=== PATIENT | female | born 1940 | race Caucasian/White ===

== ENCOUNTER 2017-02-07 13:41 | Inpatient (IN) | payer OTHER ==
[~2017-02-07] VITALS: Ht 157.5 cm; Wt 52.7 kg
[~2017-02-07 13:41] MED LIST: CIPRO500 MG PO; ENFAMIL D-V400 IU/ML PO; FLA500 PO; FOLIC ACID1 MG PO; LAC PO; LEU5 PO; LOT10 PO; METHOTREXATE2.5 M2 PO; NOR5 PO; SYN5 PO; VITAMIN B121000 MCG PO
--- NOTE | 2017-02-07 13:54 | NUR ---
DR TERAN AT BEDSIDE FOR MSE.
--- NOTE | 2017-02-07 13:55 | NUR ---
REC'D A 76/F IN RM 8 BIBA WITH C/O SYNCOPE WHILE SHOPPING AT [employer]. PT REPORTS LOC, AND DENIES HEAD TRAUMA. PT ALSO REPORTS "I'VE BEEN FEELING TIRED AND SLEEPY LATELY". PT AAOX4, SPEAKING IN CLEAR, COMPLETE SENTENCES, RESP E/U, ON CM, DAUGTHER AT BEDSIDE. CALL LIGHT WITHIN REACH, WILL CONTINUE TO MONITOR.
--- NOTE | 2017-02-07 14:17 | NUR ---
PT TAKEN TO RADIOLOGY VIA [facility].
--- NOTE | 2017-02-07 14:34 | NUR ---
PT AMBULATED TO THE RESTROOM WITH SPECIMEN CONTAINER.
--- NOTE | 2017-02-07 14:41 | NUR ---
LAB AT BEDSIDE FOR LAB DRAW.
[2017-02-07 15:00] LABS: BASOPHIL % 0.1 % (0-2); PLATELET COUNT 257 x10^3mcL (130-400)
[2017-02-07 15:05] LABS: CALCIUM 9.3 mg/dL (8.5-10.1); CARBON DIOXIDE 28.2 mmol/L (21-32); CHLORIDE SERUM 97 mmol/L (98-107); GLUCOSE SERUM 107 mg/dL (74-106); POTASSIUM SERUM 4.4 mmol/L (3.5-5.1); RED CELL DISTRIBUTION WIDTH 15.5 % (11.5-14.5); SODIUM SERUM 132 mmol/L (136-145)
[2017-02-07 15:09] LABS: ALBUMIN 4.1 g/dL (3.4-5.0); ALKALINE PHOSPHATASE 67 U/L (46-116); ALT/SGPT 42 U/L (14-59); AST/SGOT 38 U/L (15-37); BILIRUBIN TOTAL 0.6 mg/dL (0.20-1.00); TOTAL PROTEIN, SERUM 8.2 g/dL (6.4-8.2)
[2017-02-07 15:10] LABS: UA SPECIFIC GRAVITY 1.015 (1.005-1.035); microscopic required? YES; urine erythrocyte NEGATIVE (NEGATIVE)
--- NOTE | 2017-02-07 15:22 | NUR ---
REPORT GIVEN TO PAM DOOLEY TO ASSUME CARE OF THE PT,.
[2017-02-07 16:05] VITALS: BP 129/61
--- NOTE | 2017-02-07 16:21 | NUR ---
RECEIVED PATIENT FROM ED VIA [facility]ER[facility], PATIENT ALERT AND ORIENTED, TELE # 40 SR, IV ACCESS TO LAC WNL, NO C/O PAIN AT THIS TIME, ORIENTED PATIENT TO ROOM AND SURROUNDINGS, BED IN LOW POSITION, BED RAILS UP X 2, CALL LIGHT WITHIN REACH, WILL ENDORSE CARE TO PRIMARY NURSE LEONOR OROZCO
[2017-02-07 16:28] LABS: MAGNESIUM 1.8 mg/dL (1.8-2.4); PHOSPHOROUS 3.7 mg/dL (2.5-4.9)
[2017-02-07 16:29] LABS: T3 TOTAL 1.05 ng/mL
[2017-02-07 16:38] LABS: FREE T4 1.58 ng/dL (0.76-1.46); FREE THYROXINE INDEX 4.9 ug/dL (1.4-4.5); T4(THYROXINE) 14.3 ug/dL (4.7-13.3)
--- NOTE | 2017-02-07 19:05 | NUR ---
RECEIVED LAYING IN BED IN NO ACUTE DISTRESS. PT DENIES HEADACHE, DIZZINESS, LIGHTHEADEDNESS, N/V. A/O X4. OBEYS COMMANDS, SPEECH CLEAR AND CONCISE. PT IS ABLE TO MADE NEEDS KNOWN. TELE #40, NSR WITH A DEPRESSED ST. PT DENIES PAIN AT THIS TIME. PULSES PRESENT, NO EDEMA NOTED, SCD IN PLACE. LUNG SOUNDS CTA, BREATHING ON , SAT 100%. BREATHING EVEN AND UNLABORED. PT DENIES SOB AND DYSPNEA. ABD IS ROUND AND SOFT WITH ACTIVE BOWEL SOUNDS. LAST BM WAS EARLIER TODAY. PT IS ABLE TO FREELY VOID URINE. PT IS AMBULATORY. SKIN CDI. IV FLUIDS INFUSING PER DOCTOR'S ORDERS. IV SITE IS DRY, PATENT, AND INTACT. ROOM IS FREE OF SAFETY HAZARDS. BED IN LOWEST POSITION WITH SIDE RAILS UP X2. CALL LIGHT WITHIN REACH. WILL CONTINUE TO MONITOR
--- NOTE | 2017-02-07 19:29 | NUR ---
PATIENT COMFORTABLE IN BED, NO DISTRESS NOTED. DENIES ANY PAIN,OR DIZZNESS. CALL LIGHT WITH IN REACH. ENDORSED CARE TO NOC PAM TILLMAN.
[2017-02-07 21:05] VITALS: BP 134/69
--- NOTE | 2017-02-07 21:45 | NUR ---
PT REFUSED EVENING DOSE OF COLACE. PT STATED THAT SHE PREFERS TO NOT TAKE AT NIGHT. NO ACUTE DISTRESS NOTED. DENIES HEADACHE OR DIZZINESS AT THIS TIME. CALL LIGHT WITHIN REACH. WILL CONTINUE TO MONITOR
--- NOTE | 2017-02-08 00:53 | NUR ---
PT LAYING IN BED WITH EYES CLOSED AT THIS TIME. COMFORT MEASURES IN PLACE. NO ACUTE DISTRESS NOTED. CALL LIGHT WITHIN REACH. WILL CONTINUE TO MONITOR
--- NOTE | 2017-02-08 04:41 | NUR ---
PT LAYING IN BED ASLEEP. NO ACUTE DISTRESS NOTED. CALL LIGHT WITHIN REACH. WILL CONTINUE TO MONITOR
--- NOTE | 2017-02-08 05:14 | NUR ---
NO SIGNIFICANT CHANGES TO REPORT. PT COMPLIED WITH NURSING CARE THROUGHOUT THE SHIGT. NO ACUTE CHANGES OVER NIGHT. PT DENIED HEADACHE, DIZZINESS, NAUSEA OR VOMITTING. COMFORT MEASURES REMAIN IN PLACE AND ALL NEEDS ASSESSED. IV FLUIDS REMAIN INFUSING PER DOCTOR'S ORDERS. IV SITE IS DRY, PATENT, AND INTACT. ROOM IS FREE OF SAFETY HAZARDS. BED IN LOWEST POSITION WITH SIDE RAILS UP X2. CALL LIGHT WITHIN REACH. WILL ENDORSE TO DAY NURSE FOR CONTINUITY OF CARE
[2017-02-08 06:01] VITALS: BP 125/60
[2017-02-08 06:39] LABS: BASOPHIL % 0.4 % (0-2); PLATELET COUNT 205 x10^3mcL (130-400)
[2017-02-08 07:02] LABS: RED CELL DISTRIBUTION WIDTH 14.8 % (11.5-14.5)
[2017-02-08 07:05] LABS: CALCIUM 8.9 mg/dL (8.5-10.1); CARBON DIOXIDE 25.2 mmol/L (21-32); CHLORIDE SERUM 101 mmol/L (98-107); CREATININE SERUM 0.9 mg/dL (0.6-1.0); GLUCOSE SERUM 96 mg/dL (74-106); MAGNESIUM 1.8 mg/dL (1.8-2.4); PHOSPHOROUS 3.4 mg/dL (2.5-4.9); POTASSIUM SERUM 4.7 mmol/L (3.5-5.1); SODIUM SERUM 135 mmol/L (136-145)
--- NOTE | 2017-02-08 07:30 | NUR ---
RC'D PT RESTING IN BED WITH NO APPARENT SIGNS OF DISTRESS. A/A/O/X4, SPEECH CLEAR AND APPROPRIATE. DENIES DIZZINESS/SYNCOPE/SOB AT THIS TIME. ON TELE 40 WITH SR. DENIES CHEST PAIN AT THIS TIME. PALP PULSES, NO EDEMA NOTED. RESPIRATIONS EQUAL AND UNLABORED. LUNGS CTA. ON RA, DENIES SOB. ABDOMEN SOFT AND NONTENDER. ACTIVE BS. DENIES N/V. VOIDS FREELY, DENIES BURNING. AMBULATORY WITH BRP. SKIN W/D/I. DENIES PAIN AT THIS TIME. IV PATENT AND INFUSING. BED IN LOW POSITION. CALL LIGHT IN REACH. PT EDUCATED ON USING CALL LIGHT WHEN NEEDING ASSISTANCE OUT OF BED. PT VERBALIZED UNDERSTANDING. WILL CONTINUE TO MONITOR.
--- NOTE | 2017-02-08 08:25 | NUR ---
AM MEDICATIONS GIVEN. PT TOLERATED WELL. CALL LIGHT IN REACH. WILL CONTINUE TO MONITOR
--- NOTE | 2017-02-08 08:45 | NUR ---
NOTIFIED BY TELE MONITOR THAT PT IS HAVING OCCASSIONAL PVCS. PT ASYMPTOMATIC, DENIES DIZZINESS/SOB/SYCOPE. DR VALENTIN NOTIFIED AND MADE AWARE. WILL CONTINUE TO MONITOR.
[2017-02-08 09:52] VITALS: BP 128/67
[2017-02-08 10:35] VITALS: Ht 157.5 cm; Wt 52.7 kg
--- NOTE | 2017-02-08 12:46 | NUR ---
PT RESTING IN BED WITH NO APPARENT SIGNS OF DISTRESS. RESPIRATIONS EQUAL AND UNLABORED. DENIES PAIN AT THIS TIME. DENIES DIZZINESS/SOB. CALL LIGHT IN REACH. WILL CONTINUE TO MONITOR.
[2017-02-08 14:16] VITALS: BP 137/65
--- NOTE | 2017-02-08 14:44 | NUR ---
Initial Nutrition Assessment Dx: Syncope PMHx: HTN 1982,Rheumatoid arthritis, migraine, stable , TB (showed as scar on CXR in 1981), stable,Polio,Meningitis and Dislocated jaw PSHx: dilatation and curettage x 2: 1981 and 1982 Labs: (02/08) Na:135L, (02/07) Chol:240H, LDL:147H, HDL:81H, H/H:10.4/31L Meds: Antivert, Colace, Lactinex, NS IV, Synthroid, Zofran Diet:Cardiac PO Intake: (02/08) B:95% Ht: 62in, 5'2" Wt:116#, 52.67kg BMI:21.2kg/m2 (normal) IBW: 110#, 50kg %IBW: 105% UBW:116# Age:76 y/o female Food Allergies:NKFA Skin: intact Neal:21 Edema:None GI: active bowel sounds Last BM:02/07 Nursing Trigger: poor PO intake>3days Pt admitted with disorder of ANS with possible syncope, r/o CVA; likely TIA and metabolic encephalopathy secondary UTI, per H&P. During visit, observed pt sitting up in her bed eating breakfast. Pt reports to weighing 168# two and a half years ago and due to her RA she lost a significant amount of weight. Pt has recelntly been able to gain 16# and has been able to maintain her wt. Pt reports to eating most of her breakfast and was still working on her lunch. RD observed pt had eaten >60% of her meal and pt said she is still working on her lunch pt said it was bland. Problem with: N: No V:No D:No C:No Problems with: Chewing: No Swallowing: No Current appetite: Good Recent wt change:none %wt change:N/A Vitamin/Supplement use:probiotic and Multivitamin Special diet at home:Regular . Pt says she likes to eat eggs and saxena occassionally. Physical activity: used to walk but is limited due to arthritis of her leg Education: provided pt verbal diet education on low sodium diet. What foods to eat and avoid. Pt receptive and verbalized understanding. Estimated Nutritional Needs Based on actual body weight 53kg Energy: 1325-1590kcal/d (25-30kcal/kg for maintenance) Protein: 53g/d (1g/kg for geritatric maintenance) Fluid: 1325-1590ml/d (1ml/kcal) or per doctor Nutrition Diagnosis 1. Altered nutrition labs related to hypercholesteremia possibly secondary to dietary habits as evidenced by elevated lipid panel: Chol:204H, LDL:147H, HDL:81H. Intervention Recommend continue with cardiac diet due to pt with HTN and elevated lipid panel. Monitor/Evaluate Goal: PO intake at least 75% of estimated needs Monitor: PO intake, Labs, GI function F/U in 7 days as low risk:02/15
--- NOTE | 2017-02-08 14:46 | NUR ---
Recommend continue with cardiac diet due to pt with HTN and elevated lipid panel.
[2017-02-08 17:26] VITALS: BP 103/55
--- NOTE | 2017-02-08 18:59 | NUR ---
PT RESTING IN BED WITH NO APPARENT SIGNS OF DISTRESS. DENIES PAIN/DISCOMFORT AT THIS TIME. ON TELE 40 WITH SR. DENIES CHEST PAIN/PRESSURE. RESPIRATIONS EQUAL AND UNLABORED. IV PATENT AND INFUSING. BED IN LOW POSITION. CALL LIGHT IN REACH. WILL ENDORSE TO SUPERVISOR HIDE HOUSE RN..
--- NOTE | 2017-02-08 19:30 | NUR ---
PT AWAKE, SITTING UP IN BED. A/O X4. PT DENIES ANY PAIN AT THIS TIME. PT DENIES FEELING DIZZY, FAINT OR LIGHTHEADED. PT DENIES ANY CHEST PAIN/PRESSURE, DIFFICULTY BREATHING AT THIS TIME. NEURO CHECKS WNL. IV FLUIDS INFUSING PER MD ORDER. IV SITE PATENT AND INTACT. NO REDNESS, SWELLING OR PAIN NOTED AT SITE. ALL SAFETY MEASURES ENSURED. CALL LIGHT AND PERSONAL BELONGINGS WITHIN REACH. WILL CONTINUE TO MONITOR.
[2017-02-08 21:01] VITALS: BP 100/55; BP 96/53
--- NOTE | 2017-02-09 02:00 | NUR ---
PT ASLEEP IN BED. NO ACUTE DISTRESS NOTED AT THIS TIME. BREATHING EVEN AND NON-LABORED. CALL LIGHT WITHIN REACH. WILL CONTINUE TO MONITOR.
[2017-02-09 05:15] VITALS: BP 132/62
[2017-02-09 06:20] LABS: CARBON DIOXIDE 26.2 mmol/L (21-32); CHLORIDE SERUM 102 mmol/L (98-107); CREATININE SERUM 0.8 mg/dL (0.6-1.0); GLUCOSE SERUM 102 mg/dL (74-106); POTASSIUM SERUM 4.2 mmol/L (3.5-5.1); SODIUM SERUM 134 mmol/L (136-145)
[2017-02-09 06:24] LABS: BASOPHIL % 0.7 % (0-2); PLATELET COUNT 227 x10^3mcL (130-400)
--- NOTE | 2017-02-09 06:30 | NUR ---
PT SLEPT AND RESTED COMFORTABLY THROUGH THE NIGHT. NO DISTRESS OR ACUTE CHANGES IN CONDITION NOTED. PT DENIED FEELING SOB, WEAK, HAVING CHEST PAIN, DC OR DIZZINESS. ALL NEEDS ASSESSED AND MET. IV FLUIDS CONTINUING TO INFUSE PER MD ORDER. IV SITE PATENT AND INTACT. ALL SAFETY MEASURES MAINTAINED. CALL LIGHT AND PERSONAL BELONGINGS WITHIN REACH. WILL CONTINUE TO MONITOR.
[2017-02-09 06:50] LABS: RED CELL DISTRIBUTION WIDTH 15.2 % (11.5-14.5)
--- NOTE | 2017-02-09 07:20 | NUR ---
RECEIVED PATIENT SITTING UP IN BED A/O X4, CLEAR SPEECH, DENIES DC OR DIZZINESS. TELE # [address], DENIES CHEST PAIN. BREATHING EVEN UNLABBORED ON RA, DENIES SOB, NO DISTRESS NOTED. SKIN IS WARM CDI WITH IV TO LAC INTACT INFUSING NS AT 50 ML/HR FREE FROM REDNESS AND INFILTRATION. PATIENT IS CALM WITH CARE. INSTRUCTED TO CALL FOR ASSISTANCE IF NEEDED. SAFETY PRECAUTIONS MAINTAINED. WILL CONTINUE TO MONITOR AND MAINTAIN SAFETY.
--- NOTE | 2017-02-09 09:43 | NUR ---
PATIENT C/O ACHING HEADACHE 05/10, TYLENOL 650 MG PO Q6H PRN GIVEN AT THIS TIME. ALL NEEDS ATTENDED TO. WILL MONITOR.
[2017-02-09 09:48] VITALS: BP 124/66
--- NOTE | 2017-02-09 09:58 | NUR ---
ROUNDS MADE- DR. ENRIQUEZ, RESIDENT TEAM, CHARGE NURSE AND PRIMARY NURSE AT BEDSIDE. POC REVIEWED- PATIENT HAS UTI, IS STABLE FOR DISCHARGE HOME TODAY WITH ANTIBIOTICS AND WILL NEED TO FOLLOW UP WITH PCP. ALL QUESTIONS AND CONCERNS ADDRESSED. WILL MONITOR.
[2017-02-09] MEDS ORDERED: BD LACTINEX1.4 MG PO (10:20)
[2017-02-09] MEDS ORDERED: LEVAQUIN750 MG PO (10:20)
[2017-02-09 10:54] VITALS: BP 124/66
--- NOTE | 2017-02-09 11:15 | NUR ---
PATIENT IS BEING DISCHARGED HOME TODAY PER MD ORDER. DISCHARGE INSTRUCTIONS, BELONGINGS LIST AND EDUCATION GIVEN TO PATIENT. PATIENT VERBALIZED UNDERSTANDING TO CALL AND MAKE FOLLOW UP APPOINTMENT WITH DR. ANNA. ALL QUESTIONS AND CONCERNS ADDRESSED. IV TO LAC REMOVED, CATH INTACT. ID BANDS REMOVED, TELE MONITOR REMOVED. INSTRUCTED PATIENT TO NOTIFY STAFF WHEN DAUGHTER ARRIVES SO SHE CAN BE ASSISTED DOWN TO LOBBY. VERBALIZED UNDERSTANDING. SAFETY PRECAUTIONS MAINTAINED. WILL MONITOR.
--- NOTE | 2017-02-09 11:29 | NUR ---
PATIENT IN STABLE CONDITION FOR DISCHARGE. PATIENTS DAUGHTER AT BEDSIDE. PATIENT ASSISTED DOWN TO LOBBY VIA WHEELCHAIR ACCOMPANIED BY NURSE AID AND DAUGHTER. ALL PERSONAL BELONGINGS SENT HOME WITH PATIENT.
== END 2017-02-09 11:29 | disposition home or self-care (01) | DRG 689 ==
LOC: ED 13:41 → DU 14:39
PROVIDERS: Emergency Medicine; Student in an Organized Health Care Education/Training Program; ADMIT Family Medicine
DX: N39.0 Urinary tract infection, site not specified (principal); G93.41 Metabolic encephalopathy; N17.0 Acute kidney failure with tubular necrosis; E87.1 Hypo-osmolality and hyponatremia; R55 Syncope and collapse; E03.9 Hypothyroidism, unspecified; E78.5 Hyperlipidemia, unspecified; M06.9 Rheumatoid arthritis, unspecified; Z86.12 Personal history of poliomyelitis; Z86.11 Personal history of tuberculosis; Z68.21 Body mass index [BMI] 21.0-21.9, adult
CPT/HCPCS: 83880; 84439; J1956; J7030; J7040; Q0092

== ENCOUNTER 2017-08-29 06:46 | Emergency (ER) | payer OTHER ==
[~2017-08-29] VITALS: Ht 157.5 cm; Wt 52.6 kg
[~2017-08-29 06:46] MED LIST changes: +BD LACTINEX1.4 MG PO; +LEVAQUIN750 MG PO
[2017-08-29 06:52] VITALS: Ht 157.5 cm; Wt 52.6 kg
[2017-08-29 07:36] LABS: microscopic required? NO
[2017-08-29 07:46] LABS: BASOPHIL % 0.4 % (0-2); PLATELET COUNT 264 x10^3mcL (130-400)
[2017-08-29 07:51] LABS: urine erythrocyte NEGATIVE (NEGATIVE)
[2017-08-29 07:51] LABS: RED CELL DISTRIBUTION WIDTH 15.2 % (11.5-14.5)
[2017-08-29 07:56] LABS: CALCIUM 9.2 mg/dL (8.5-10.1); CARBON DIOXIDE 27.6 mmol/L (21-32); CHLORIDE SERUM 99 mmol/L (98-107); CREATININE SERUM 0.9 mg/dL (0.6-1.0); GLUCOSE SERUM 99 mg/dL (74-106); POTASSIUM SERUM 3.8 mmol/L (3.5-5.1); SODIUM SERUM 135 mmol/L (136-145)
[2017-08-29 08:08] LABS: ALBUMIN 4.1 g/dL (3.4-5.0); ALKALINE PHOSPHATASE 92 U/L (46-116); ALT/SGPT 29 U/L (14-59); AMYLASE 76 U/L (25-115); AST/SGOT 29 U/L (15-37); BILIRUBIN TOTAL 0.81 mg/dL (0.20-1.00); LIPASE 201 IU/L (73-393); MAGNESIUM 1.8 mg/dL (1.8-2.4); T4(THYROXINE) 11.8 ug/dL (4.7-13.3); TOTAL PROTEIN, SERUM 7.6 g/dL (6.4-8.2)
[2017-08-29 08:17] LABS: AMPHETAMINE QUAL UR NONE DETECTED (See below)
[2017-08-29 11:28] VITALS: BP 140/72
== END 2017-08-29 11:28 | disposition home or self-care (01) ==
LOC: ED 06:46
PROVIDERS: Emergency Medicine
DX: K59.00 Constipation, unspecified (principal); I10 Essential (primary) hypertension; E03.9 Hypothyroidism, unspecified; E78.00 Pure hypercholesterolemia, unspecified; M06.9 Rheumatoid arthritis, unspecified; Z88.2 Allergy status to sulfonamides; Z88.0 Allergy status to penicillin
CPT/HCPCS: 36415; 83880

== ENCOUNTER 2018-10-04 12:22 | Inpatient (IN) | payer OTHER ==
[~2018-10-04] VITALS: Ht 157.5 cm; Wt 50.3 kg
[2018-10-04 12:31] VITALS: Ht 157.5 cm; Wt 50.3 kg
--- NOTE | 2018-10-04 12:45 | NUR ---
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 IN THE CAR THE PT STS SHE FELT COLD THEN DOESN'T "REMEMBER PASSING OUT" PER DAUGHTER SHE "PASSED OUT FOR 15-30 SECONDS WITH HER HEAD BACK ON THE CAR SEAT" PT DAUGHTER STS -HEAD/INJURY OCCURED, PER PT "I AM GENERALLY WEAK AND DON'T EAT MUCH BECAUSE I DON'T HAVE AN APPETITE" PT STS HX ANEMIA AND RA. PT IS AAOX4, RESPS E/U, PT DENIES ANY DIZZINESS AT THIS TIME, PT DENIES ANY N/V, CHEST PAIN, AND/OR SOB WELL. SKIN PINK DRY AND WARM, PT GOWNED AND PLACED ON FULL CM, NSR, DAUGHTER AT BEDSIDE
--- NOTE | 2018-10-04 12:45 | NUR ---
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 IN THE CAR THE PT STS SHE FELT COLD THEN DOESN'T "REMEMBER PASSING OUT" PER DAUGHTER SHE "PASSED OUT FOR 15-30 SECONDS WITH HER HEAD BACK ON THE CAR SEAT" PT DAUGHTER STS -HEAD/INJURY OCCURED, PER PT "I AM GENERALLY WEAK AND DON'T EAT MUCH BECAUSE I DON'T HAVE AN APPETITE" PT STS HX ANEMIA AND RA. PT IS AAOX4, RESPS E/U, PT DENIES ANY DIZZINESS AT THIS TIME, PT DENIES ANY N/V, CHEST PAIN, AND/OR SOB WELL. PT SPEAKING FULL CLEAR SENTENCES, SKIN PINK DRY AND WARM, PT GOWNED AND PLACED ON FULL CM, NSR, DAUGHTER AT BEDSIDE
--- NOTE | 2018-10-04 12:45 | NUR ---
MD MATHEW AT BEDSIDE PERFORMING MSE
[2018-10-04 13:15] LABS: BASOPHIL % 0.4 % (0-2); PLATELET COUNT 253 x10^3mcL (130-400)
[2018-10-04 13:16] LABS: RED CELL DISTRIBUTION WIDTH 16.1 % (11.5-14.5)
[2018-10-04 13:41] LABS: ALBUMIN 3.8 g/dL (3.4-5.0); ALKALINE PHOSPHATASE 84 U/L (46-116); ALT/SGPT 21 U/L (14-59); AST/SGOT 19 U/L (15-37); BILIRUBIN TOTAL 0.45 mg/dL (0.20-1.00); CALCIUM 8.9 mg/dL (8.5-10.1); CARBON DIOXIDE 24.1 mmol/L (21-32); CHLORIDE SERUM 96 mmol/L (98-107); CREATININE SERUM 1.1 mg/dL (0.6-1.0); GLUCOSE SERUM 108 mg/dL (74-106); POTASSIUM SERUM 4.2 mmol/L (3.5-5.1); SODIUM SERUM 130 mmol/L (136-145); TOTAL PROTEIN, SERUM 7.3 g/dL (6.4-8.2)
--- NOTE | 2018-10-04 13:45 | NUR ---
EMT DUARTE AT BEDSIDE PERFORMING ORTHOSTATIC VITALS
--- NOTE | 2018-10-04 14:06 | NUR ---
PT IN POSITION OF COMFORT, RESPS E/U, DAUGHTER AT BEDSIDE, CALL LIGHT WITHIN REACH
--- NOTE | 2018-10-04 15:05 | NUR ---
PT REQUESTS JOSEPH LOPES, PER MD MATHEW VERBAL ORDERS OKAY FOR PT TO EAT, JOSEPH LOPES GIVEN, DAUGTER AT BEDSIDE, WILL CONTINUE TO MONITOR
[2018-10-04] MEDS ORDERED: MELOXICAM7.5 M1 PO (15:57)
[2018-10-04] MEDS ORDERED: LIPI10 PO (15:57)
--- NOTE | 2018-10-04 16:12 | NUR ---
MD MATHEW AT BEDSIDE DISCUSSING POC
--- NOTE | 2018-10-04 16:15 | NUR ---
PT RESTING IN POSITION OF COMFORT, RESPS E/U, PT IN NAD, VSS, DAUGHTER AT BEDSIDE, CALL LIGHT WITHIN REACH
--- NOTE | 2018-10-04 17:20 | NUR ---
PT ASLEEP BUT AROUSABLE, RESPS E/U, LIGHTS DIMMED PER PT REQUEST AND COMFORT, CALL LIGHT WITHIN REACH
--- NOTE | 2018-10-04 17:45 | NUR ---
RECEIVED PT VIA [employer] FROM E/D, ACCOMPANIED BY RN AND TRANSPORTER. PT A/A/O X 4, CALM, COOPERATIVE. GENERALIZED WEAKNESS, BUT ABLE TO AMBULATE BY HERSELF W/ SLOW, STEADY GAIT; FALL RISK PROTOCOL IN PLACE. ON TELE # 11, SR W/ PVC'S, DENIES CHEST PAIN, DISCOMFORT, OR DIZZINESS AT THIS TIME. NO ACUTE RESPIRATORY DISTRESS NOTED. REPORTS LOW APPETITE, NO DYSPHAGIA. IV SITE RW 22G, CDI. ORIENTED PT TO ROOM, BED CONTROLS, CALL LIGHT SYSTEM. SIDE RAILS UP X 2, BED IN LOW POSITION. WILL ENDORSE TO PAM COOPER.
--- NOTE | 2018-10-04 18:00 | NUR ---
PT RESTING IN BED COMFORTABLY. DENIES PAIN. STABLE. WILL MONITOR.
[2018-10-04 18:16] VITALS: BP 114/75
--- NOTE | 2018-10-04 19:15 | NUR ---
PT REMAINS STABLE. DENIES ANY PAIN. GAVE REPORT TO LEARNING AND DEVELOPMENT OFFICER NURSE.
--- NOTE | 2018-10-04 19:50 | NUR ---
RECEIVED REPORT FROM DAY SHIFT RN. PT RESTING IN BED. AA&O X4. NO SOB ON ROOM AIR. NO C/O PAIN/HEADACHE/DIZZINESS. NO DISTRESS NOTED. IV TO RIGHT WRIST, INTACT. SAFETY MEASURES IN PLACE. BED IN LOWEST POSITION. SIDE RAILS UP X2. DEMONSTRATED HOW TO USE THE CALL LIGHT FOR ASSISTANCE. CALL LIGHT WITHIN REACH. WILL CONTINUE TO MONITOR.
[2018-10-04 21:27] VITALS: BP 138/60
--- NOTE | 2018-10-05 02:05 | NUR ---
PT RESTING WITH EYES CLOSED. BREATHING EVEN AND UNLABORED ON ROOM AIR. NO DISTRESS NOTED. SAFETY MEASURES IN PLACE. CALL LIGHT WITHIN REACH. WILL CONTINUE TO MONITOR.
[2018-10-05 05:12] VITALS: BP 108/60
[2018-10-05 06:33] LABS: CALCIUM 8.9 mg/dL (8.5-10.1); CARBON DIOXIDE 23.4 mmol/L (21-32); CHLORIDE SERUM 103 mmol/L (98-107); CREATININE SERUM 0.9 mg/dL (0.6-1.0); GLUCOSE SERUM 82 mg/dL (74-106); MAGNESIUM 1.9 mg/dL (1.8-2.4); POTASSIUM SERUM 4.9 mmol/L (3.5-5.1); SODIUM SERUM 136 mmol/L (136-145)
[2018-10-05 06:36] LABS: BASOPHIL % 0.6 % (0-2); PLATELET COUNT 243 x10^3mcL (130-400)
[2018-10-05 06:41] LABS: RED CELL DISTRIBUTION WIDTH 16.5 % (11.5-14.5)
--- NOTE | 2018-10-05 06:54 | NUR ---
PT SLEPT WELL DURING SHIFT. NO SOB. BREATHING EVEN AND UNLABORED. NO C/O PAIN. NO DISTRESS NOTED. PT STATES "FEELING BETTER". SAFETY MEASURES MAINTAINED. ALL NEEDS ATTENDED TO. WILL ENDORSE CONTINUITY OF CARE TO DAY SHIFT RN.
--- NOTE | 2018-10-05 07:45 | NUR ---
ALERT AND ORIENTED. SITTING UP IN BED BREATHING FREELY ON RA, DENIES ANY PAIN AT THIS TIME. NS INFUISNG 80 CC HOUR. TELE # 11 NSR. SAYS SHE FEELS FINE. NO LIGHTHEADEDNESS OR DIZZINESS. ADMITS TO HAVING POOR APPETITE LATELY. DOES NOT USE ANY ASSISTIVE DEVICES AT HOME.
[2018-10-05 10:29] VITALS: BP 109/54
[2018-10-05 13:19] VITALS: BP 140/75
[2018-10-05 13:22] VITALS: BP 136/64
[2018-10-05 15:34] VITALS: BP 136/64
--- NOTE | 2018-10-05 16:30 | NUR ---
IV DC'D. PT TO CALL PCP FOR F/U ANA. NO PRESCRIPTIONS GIVEN. ALL DC INSTRUCTIONS REVIEWED WITH AND SIGNED BY PT. DTR WILL BE HERE TO TAKE PT HOME AROUND 1730 TODAY.
--- NOTE | 2018-10-05 16:31 | NUR ---
TELE # 11 RETURNED TO TELE STATION.
== END 2018-10-05 17:44 | disposition home or self-care (01) | DRG 312 ==
LOC: ED 12:22 → DU 16:25
PROVIDERS: Emergency Medicine; ADMIT Internal Medicine Pulmonary Disease
DX: R55 Syncope and collapse (principal); M06.9 Rheumatoid arthritis, unspecified; I10 Essential (primary) hypertension; E03.9 Hypothyroidism, unspecified; Z86.11 Personal history of tuberculosis; Z86.12 Personal history of poliomyelitis
CPT/HCPCS: 82962; G0378; J1580; J1644; J7030; Q0092

== ENCOUNTER 2019-02-24 09:03 | Emergency (ER) | payer OTHER ==
[~2019-02-24] VITALS: Ht 157.5 cm; Wt 52.2 kg
[~2019-02-24 09:03] MED LIST changes: +LIPI10 PO; +MELOXICAM7.5 M1 PO
[2019-02-24 09:11] VITALS: Ht 157.5 cm; Wt 52.2 kg
[2019-02-24 13:27] VITALS: BP 142/79
== END 2019-02-24 13:27 | disposition home or self-care (01) ==
LOC: ED 09:03
DX: K59.00 Constipation, unspecified (principal); Z88.0 Allergy status to penicillin; Z88.2 Allergy status to sulfonamides; Z88.5 Allergy status to narcotic agent